=== PATIENT | male | born 1970 | race Caucasian/White ===

== ENCOUNTER 2017-05-15 12:47 | Emergency (ER) | payer OTHER ==
[~2017-05-15] VITALS: Ht 172.7 cm; Wt 84.1 kg
[~2017-05-15 12:47] MED LIST: MORPHINE PUMP
[2017-05-15 12:54] VITALS: BP 142/77; PULSE 97; RESP 16; TEMP 98.6; O2SAT 96
--- NOTE | 2017-05-15 13:37 | PD ---
HPI Chief Complaint: Urology Physician Assistant Problem Time Seen by Provider: 13:19 Travel History International Travel<30 days: No Contact w/Intl Traveler<30days: No Traveled to known affect area: No History of Present Illness HPI 47-year-old male with history chronic back pain with morphine pump presents to the ER stating that the morphine pump is not working. He reports increased low back pain and is having mild withdrawal symptoms. He states nausea without vomiting or diarrhea. Low back pain in the region of his chronic pain. He denies fever or chills, chest pain, abdominal pain. He reports he contacted the audio director and 24 hour Hotline number for his morphine pump device but is unable to reach anyone. Symptom severity is mild. PFSH Past Medical History Narrative Medical Chronic low back pain Blood Disorders: No Cancer: No Cardiovascular Problems: No Diminished Hearing: No Endocrine: No Genitourinary: Yes (URETHRAL RECONSTRUCTION FROM FOLEYY PULLED OUT) Immune Disorder: No Implanted Vascular Access Dvce: Yes (MORPHINE PAIN PUMP) Musculoskeletal: Yes (chronic back pain with Morphine pump) Neurologic: Yes Psychiatric: No Respiratory: No Integumentary: Yes (CELLULITIS VS MERSA) Immunizations Current: No Seizures: Yes Tetanus Vaccination: > 5 Years Influenza Vaccination: No Past Surgical History Body Medical Devices: RODS/SCREWS IN SPINE, MORPHINE PUMP Genitourinary Surgery: Yes (URETHRAL RECONSTRUCTION 1999) Other Surgery: Yes Social History Alcohol Use: No Tobacco Use: No (quit) Substance Use: Yes (SMOKED k-2/QUIT 2010) Allergies-Medications (Allergen,Severity, Reaction): Coded Allergies: No Known Allergies (Verified Adverse Reaction, Unknown, 05/15/17) Reported Meds & Prescriptions Reported Meds & Active Scripts Active Reported [Morphine Pump] Review of Systems Except as stated in HPI: all other systems reviewed are Neg General / Constitutional: No: Fever Eyes: No: Visual changes HENT: No: Headaches Cardiovascular: No: Chest Pain or Discomfort Respiratory: No: Shortness of Breath Gastrointestinal: No: Abdominal Pain Genitourinary: No: Dysuria Physical Exam Narrative GENERAL: Well-nourished, well-developed patient. In no acute distress. SKIN: Focused skin assessment warm/dry. HEAD: Normocephalic. EYES: No scleral icterus. No injection or drainage. NECK: Supple, trachea midline. No JVD or lymphadenopathy. GASTROINTESTINAL: Abdomen soft, non-tender, nondistended. BACK: Generalized low back pain without point tenderness. No CVA tenderness. Data Data Last Documented VS Vital Signs Date Time Temp Pulse Resp B/P (MAP) Pulse Ox O2 Delivery O2 Flow Rate FiO2 05/15/17 13:02 Room Air 05/15/17 12:54 98.6 97 16 142/77 (98) 96 MDM Medical Decision Making Medical Screen Exam Complete: Yes Emergency Medical Condition: Yes Differential Diagnosis Opiate withdrawal, morphine pump malfunction, other Narrative Course 47-year-old male with working pump for chronic pain control presents stating that his morphine pump is not working for the last 2-3 days. He reports he has had similar episodes in the past and symptoms were the same. He has increased pain at the site of his chronic low back pain. He reports nausea without vomiting or diarrhea. He denies fever, chills, chest pain, abdominal pain. He does not appear in distress. He will be given a shot of morphine in the ED. Instructed to contact pain management doctor. He agrees to plan Diagnosis Primary Impression: Chronic low back pain Qualified Codes: M54.5 - Low back pain; G89.29 - Other chronic pain Referrals: Pain Management Additional Instructions: Contact your pain management doctor Disposition: 01 DISCHARGE HOME Condition: Stable Es Hodges May 15, 2017 13:37
[2017-05-15] MEDS ORDERED: TRAM50 PO (13:38)
[2017-05-15] MEDS ORDERED: MORPHINE SULFATE 2 MG/ML INJ IM ONE (13:45)
[2017-05-15 14:16] VITALS: RESP 18
== END 2017-05-15 14:17 | disposition home or self-care (01) ==
LOC: PHEFT 12:47
DX: M54.5 Low back pain (principal); G89.29 Other chronic pain
CPT/HCPCS: 96372; 99284; J2270